=== PATIENT | female | born 1955 | race American Indian/Alaskan Native ===

== ENCOUNTER 2023-11-12 04:29 | Emergency (ER) | payer MEDICARE, MEDICAID ==
[2023-11-12 05:00] LABS: HEMOGLOBIN 12.8 g/dL (11.4-15.5); MEAN CORPUSCULAR HEMOGLOBIN 37.5 pg (23.9-33.9); MEAN CORPUSCULAR HGB CONC 34.5 g/dL (31.9-34.8); MEAN CORPUSCULAR VOLUME 108.6 fL (76.7-100.5); MEAN PLATELET VOLUME 8.9 fL (7.1-12.4); PLATELET COUNT,PLT 159 x10(3)uL (151-488); RED BLOOD CELL COUNT 3.41 x10(6)uL (3.60-5.20); RED CELL DISTRIBUTION WIDTH 13.3 % (12.3-16.5); WHITE BLOOD CELL COUNT,WBC 13.6 x10-3/uL (3.0-10.3)
[2023-11-12 05:09] LABS: BLOOD UREA NITROGEN,BUN 14 mg/dL (7-18); BUN/CREATININE RATIO 10.8 (9-20); CARBON DIOXIDE,CO2 21 mmol/L (21-32); CHLORIDE,CL 105 mmol/L (100-110); CREATININE 1.3 mg/dL (0.55-1.02); EST CRCL DRUG DOSING (CG) 39.16 mL/min; ESTIMATED GFR 44 mL/min (>60); GLUCOSE RANDOM 209 mg/dL (80-116); POTASSIUM,K 3.8 mmol/L (3.5-5.3); SODIUM,NA 140 mmol/L (135-145)
[2023-11-12] MEDS: Ondansetron 4 MG/2 ML SDV IVPUSH ONE ×2 (05:09→12:12)
[2023-11-12] MEDS: Sodium Chloride 0.9% 1,000 ML IV ONE (05:09)
[2023-11-12 05:14] LABS: A/G RATIO 0.8; ALANINE AMINOTRANSFERASE,ALT 20 U/L (12-36); ALBUMIN 3.3 g/dL (3.2-4.6); ALKALINE PHOSPHATASE 78 IU/L (56-112); ASPARTATE AMNIOTRANSFERASE,AST 19 IU/L (5-25); BILIRUBIN TOTAL 1.5 mg/dL (0.1-1.3); PROTEIN TOTAL,TP 7.4 g/dL (6.0-8.0)
[2023-11-12 05:16] LABS: BAND PERCENT MAN 6 % (0-6); SEG NEUTROPHILS PERCENT MAN 80 % (46-82)
[2023-11-12 05:17] LABS: LYMPHOCYTES PERCENT MAN 10 % (13-37); MONOCYTES PERCENT MAN 4 % (4-12)
[2023-11-12] MEDS ORDERED: Ketorolac 30 MG/ML SDV IVPUSH ONE (05:41)
[2023-11-12] MEDS: Iopamidol 755 Mg/ML 100 ML Bottle IV SCH (07:41)
[2023-11-12] MEDS: Sodium Chloride 0.9% 1,000 ML IV SCH ×2 (08:18→17:03)
[2023-11-12 09:45] LABS: BILIRUBIN,URINE NEGATIVE (NEGATIVE); GLUCOSE,URINE NORMAL (NORMAL); KETONES,URINE NEGATIVE (NEGATIVE); LEUKOCYTE ESTERASE,URINE LARGE (NEGATIVE); NITRITE,URINE NEGATIVE (NEGATIVE); OCCULT BLOOD,URINE MODERATE (NEGATIVE); PROTEIN,URINE TRACE mg/dL (NEGATIVE); UROBILINOGEN,URINE NORMAL (NEGATIVE)
[2023-11-12 09:46] LABS: APPEARANCE,URINE CLOUDY (CLEAR); COLOR,URINE YELLOW (YELLOW); RBC,URINE PACKED (0-5); WBC,URINE PACKED (0-5)
[2023-11-12] MEDS: Levofloxacin/Dextrose 5%-Water 750 MG in Premix Bag 1 BAG IV ONE (11:05)
[2023-11-12] MEDS: diphenhydrAMINE 50 MG/ML SDV IVPUSH ONE (12:18)
[2023-11-12] MEDS: Tamsulosin 0.4 MG Cap.ER PO ONE (12:19)
[2023-11-12] MEDS: Acetaminophen 500 MG Tab PO ONE (12:19)
[2023-11-12] MEDS: Morphine 2 MG/ML SYRINGE IVPUSH ONE (12:24)
[2023-11-12] MEDS: Ketorolac 30 MG/ML SDV IVPUSH ONE ×2 (13:10→17:25)
[2023-11-12] MEDS ORDERED: Sodium Chloride 0.9% 1,000 ML IV SCH (16:30)
== END 2023-11-12 17:30 | disposition home or self-care (01) ==
LOC: MERGE 04:29 → FB.ED 04:29
DX: R10.32 Left lower quadrant pain (principal); E11.9 Type 2 diabetes mellitus without complications; Z88.0 Allergy status to penicillin; Z88.2 Allergy status to sulfonamides
CPT/HCPCS: 36415; 71045; 74177; 80053; 81001; 82947; 83605; 85025; 86140; 87040; 87086; 87088; 87186; 96361; 96365; 96375; 96376; 99285; A9270; J1200; J1885; J1956; J2405; J7030; Q9967

== ENCOUNTER 2023-11-20 10:43 | Inpatient (IN) | payer MEDICARE, MEDICAID ==
[2023-11-20] MEDS ORDERED: 50% Dextrose in Water 50 ML Syringe IVPUSH PRN ×2 (16:25→16:35)
[2023-11-20] MEDS ORDERED: Glucagon,Human Recombinant 1 MG Vial IM PRN ×2 (16:25→16:35)
[2023-11-20] MEDS ORDERED: Insulin Lispro 100 Unit/ML 3 ML KwikPen SUBCUT ONE (17:53)
[2023-11-20] MEDS: atorvaSTATin 20 MG Tab PO SCH (17:56)
[2023-11-20] MEDS: Ciprofloxacin 500 MG Tab PO SCH (17:56)
[2023-11-20] MEDS: Midodrine 5 MG Tab PO SCH (17:56)
[2023-11-20] MEDS: Insulin Lispro 100 Unit/ML 3 ML KwikPen SUBCUT SCH (17:56)
[2023-11-20] MEDS: Apixaban 5 MG Tab PO SCH (20:35)
[2023-11-21] MEDS: Acetaminophen 325 MG Tab PO PRN (00:09)
[2023-11-21 06:11] LABS: EOSINOPHILS ABSOLUTE AUTO 0.1 x10-3/uL (0.0-0.8); EOSINOPHILS PERCENT AUTO 3.3 % (0.6-8.1); HEMATOCRIT 29.3 % (34.2-48.2); HEMOGLOBIN 10.3 g/dL (11.4-15.5); LYMPHOCYTES ABSOLUTE AUTO 1.7 x10-3/uL (1.0-4.4); MEAN CORPUSCULAR HEMOGLOBIN 37.9 pg (23.9-33.9); MEAN CORPUSCULAR VOLUME 108.2 fL (76.7-100.5); MEAN PLATELET VOLUME 9.6 fL (7.1-12.4); MONOCYTES ABSOLUTE AUTO 0.4 x10-3/uL (0.3-1.0); MONOCYTES PERCENT AUTO 11.4 % (4.4-15.7); NEUTROPHILS ABSOLUTE AUTO 1.5 x10-3/uL (1.5-6.3); NEUTROPHILS PERCENT AUTO 39.3 % (30.8-76.2); PLATELET COUNT,PLT 116 x10(3)uL (151-488); RED BLOOD CELL COUNT 2.71 x10(6)uL (3.60-5.20); RED CELL DISTRIBUTION WIDTH 13.5 % (12.3-16.5); WHITE BLOOD CELL COUNT,WBC 3.9 x10-3/uL (3.0-10.3)
[2023-11-21 06:25] LABS: A/G RATIO 0.6; ALANINE AMINOTRANSFERASE,ALT 18 U/L (12-36); ALBUMIN 2.3 g/dL (3.2-4.6); ALKALINE PHOSPHATASE 51 IU/L (56-112); ASPARTATE AMNIOTRANSFERASE,AST 14 IU/L (5-25); BILIRUBIN TOTAL 1.2 mg/dL (0.1-1.3); BLOOD UREA NITROGEN,BUN 8 mg/dL (7-18); BUN/CREATININE RATIO 8.9 (9-20); CALCIUM 8.2 mg/dL (8.6-10.2); CARBON DIOXIDE,CO2 29 mmol/L (21-32); CHLORIDE,CL 107 mmol/L (100-110); CREATININE 0.9 mg/dL (0.55-1.02); EST CRCL DRUG DOSING (CG) 56.56 mL/min; ESTIMATED GFR 69 mL/min (>60); GLUCOSE RANDOM 192 mg/dL (80-116); MAGNESIUM 1.7 mg/dL (1.8-2.5); POTASSIUM,K 3.8 mmol/L (3.5-5.3); PROTEIN TOTAL,TP 6.4 g/dL (6.0-8.0); SODIUM,NA 142 mmol/L (135-145)
[2023-11-21] MEDS: Magnesium Chloride 64 MG Tab.ER PO SCH (08:29)
[2023-11-21] MEDS: Metoprolol Succinate 25 MG Tab.ER PO SCH (08:29)
[2023-11-21] MEDS: Potassium Chloride 20 MEQ Tab.ER PO SCH (08:29)
[2023-11-21] MEDS ORDERED: Insulin Glargine,Human Rec. Analog 100 Units/ML 3 ML Pen SUBCUT ONE (08:32)
[2023-11-21] MEDS: Insulin Glargine,Human Rec. Analog 100 Units/ML 3 ML Pen SUBCUT SCH (08:38)
[2023-11-21] MEDS: Meclizine 25 MG Tab PO PRN (11:45)
[2023-11-21] MEDS: Ondansetron 4 MG Tab.DIS PO PRN (14:52)
[2023-11-21] MEDS: traMADol 50 MG Tab PO PRN (14:52)
[2023-11-23] MEDS ORDERED: 50% Dextrose in Water 50 ML Syringe IVPUSH PRN (09:48)
[2023-11-23] MEDS ORDERED: Glucagon,Human Recombinant 1 MG Vial IM PRN (09:48)
[2023-11-23] MEDS: Insulin Lispro 100 Unit/ML 3 ML KwikPen SUBCUT SCH (17:46)
[2023-11-24] MEDS: Insulin Lispro 100 Unit/ML 3 ML KwikPen SUBCUT SCH (10:50)
[2023-11-24] MEDS: Sertraline 50 MG Tab PO SCH (21:05)
[2023-11-25] MEDS: Insulin Lispro 100 Unit/ML 3 ML KwikPen SUBCUT SCH (09:20)
[2023-11-26] MEDS: Insulin Lispro 100 Unit/ML 3 ML KwikPen SUBCUT SCH (09:03)
== END 2023-11-27 14:42 | disposition home or self-care (01) | DRG 948 ==
LOC: FB.MS 15:15
PROVIDERS: ADMIT Internal Medicine; ATTEND Family Medicine
DX: R53.81 Other malaise (principal); I50.32 Chronic diastolic (congestive) heart failure; I48.0 Paroxysmal atrial fibrillation; E11.65 Type 2 diabetes mellitus with hyperglycemia; I11.0 Hypertensive heart disease with heart failure; F41.9 Anxiety disorder, unspecified; F32.A Depression, unspecified; E78.00 Pure hypercholesterolemia, unspecified; Z79.01 Long term (current) use of anticoagulants; Z79.4 Long term (current) use of insulin; Z88.2 Allergy status to sulfonamides; Z88.0 Allergy status to penicillin; Z88.1 Allergy status to other antibiotic agents; Z90.89 Acquired absence of other organs
CPT/HCPCS: 36415; 71046; 80053; 82947; 83735; 84484; 85025; 93005; 93010; 97116-GP; 97161-GP; 97165-GO; 97530-GO; 97530-GP; 97535-GO; 99305; 99308; 99309; 99315; A9270-GY; J1815; J1815-GY; Q0162